=== PATIENT | female | born 1990 | race Caucasian/White ===

== ENCOUNTER 2017-06-19 19:19 | Emergency (ER) | payer OTHER ==
[~2017-06-19] VITALS: Ht 157.5 cm; Wt 149.3 kg
[~2017-06-19 19:19] MED LIST: ACETAMINOPHEN500 MG PO; ADVIL200 M1; AMOXICILLIN500 M1 PO; FIORICET,ESG1 TABLET PO; IBUPROFEN200 M1 PO; KEFLEX500 MG PO; MOTRIN IB200 MG PO; NO MEDS; NOHOMEMEDS; PEPCID20 MG PO; PHENERGAN12.5 M1 PO; TRAMADOL HCL50 MG; TYLENOL REGULA325 MG PO; TYLENOL325 M1 PO; [UNRECOGNIZED DRUG - REMARK]
[2017-06-19] MEDS ORDERED: CLEOCIN300 MG PO (22:46)
[2017-06-19 23:10] VITALS: BP 140/81
== END 2017-06-19 23:10 | disposition home or self-care (01) ==
LOC: EME 19:19
DX: N76.4 Abscess of vulva (principal); L01.00 Impetigo, unspecified; E11.9 Type 2 diabetes mellitus without complications; F32.9 Major depressive disorder, single episode, unspecified; F17.200 Nicotine dependence, unspecified, uncomplicated; Z88.5 Allergy status to narcotic agent; Z88.8 Allergy status to other drugs, medicaments and biological substances
CPT/HCPCS: 99281; 99284